=== PATIENT | female | born 1995 | race Caucasian/White ===

== ENCOUNTER 2020-11-05 04:01 | Emergency (ER) | payer OTHER ==
[~2020-11-05] VITALS: Ht 165.1 cm; Wt 142.9 kg
[2020-11-05] MEDS ORDERED: WELLBUTRIN 75 M75 M1 PO (04:18)
[2020-11-05] MEDS ORDERED: SYNTHROID175 MCG PO (04:18)
[2020-11-05 04:35] LABS: URINE BILIRUBIN NEGATIVE (Negative); URINE BLOOD 3+ (Negative); URINE CLARITY CLEAR; URINE COLOR YELLOW; URINE GLUCOSE-RANDOM NEGATIVE (Negative); URINE KETONES 1+ (Negative); URINE LEUKOCYTES-REFLEX NEGATIVE (Negative); URINE NITRITE-REFLEX NEGATIVE (Negative); URINE PROTEIN NEGATIVE (Negative); URINE SPECIFIC GRAVITY 1.025 (1.005-1.030); URINE UROBILINOGEN 0.2 E.U./dl (0.2-1.0)
[2020-11-05 04:59] LABS: ABSOLUTE BASOPHILS 0.1 thou/uL (0.0-0.2); ABSOLUTE EOSINOPHILS 0.1 thou/uL (0.0-0.7); ABSOLUTE LYMPHOCYTES 1.8 thou/uL (0.8-5.3); ABSOLUTE MONOCYTES 0.6 thou/uL (0.0-1.2); ABSOLUTE NEUTROPHILS 5.6 thou/uL (1.6-8.1); BASOPHILS 1.2 %; HEMATOCRIT 39.7 % (37.0-47.0); LYMPHOCYTES 22.7 %; MCHC 32.9 g/dL (28.0-37.0); MCV 88.4 fL (80.0-100.0); MONOCYTES 6.8 %; MPV 7.7 fl. (7.2-11.1); NUCLEATED RBCS 0 /100WBC; PLATELET COUNT* 274 thou/uL (150-400); POLYS 68.3 %; RBC 4.49 mil/uL (4.20-5.00); RDW-CV 13.4 % (10.5-14.5); WBC 8.1 thou/uL (4.0-11.0)
[2020-11-05 05:04] LABS: CREATININE 0.9 mg/dL (0.6-1.3); POTASSIUM 3.7 mmol/L (3.5-5.1)
[2020-11-05 05:13] LABS: CALCIUM 8.9 mg/dL (8.5-10.1)
[2020-11-05 05:36] LABS: CASTS None Seen /LPF (None Seen); CRYSTALS None Seen /LPF (None Seen); MUCUS 0-3 Light strn/LPF (None Seen); SQUAMOUS 4-10 Moderate /LPF (0-3); URINE WBC-REFLEX 0-5 Rare /HPF (0-5)
[2020-11-05] MEDS ORDERED: HYDROCODON-ACE1 EAC8 PO (06:29)
[2020-11-05] MEDS ORDERED: ZOFRAN ODT4 MG PO (06:29)
[2020-11-05 06:42] VITALS: BP 147/83
== END 2020-11-05 06:43 | disposition home or self-care (01) ==
LOC: M.ERS 04:01
PROVIDERS: Emergency Medicine
DX: N13.2 Hydronephrosis with renal and ureteral calculous obstruction (principal); E03.9 Hypothyroidism, unspecified; Z87.442 Personal history of urinary calculi; Z79.899 Other long term (current) drug therapy

== ENCOUNTER 2021-04-01 15:58 | Emergency (ER) | payer OTHER ==
[~2021-04-01] VITALS: Ht 165.1 cm; Wt 147.4 kg
[~2021-04-01 15:58] MED LIST: HYDROCODON-ACE1 EAC8 PO; SYNTHROID175 MCG PO; WELLBUTRIN 75 M75 M1 PO; ZOFRAN ODT4 MG PO
[2021-04-01] MEDS ORDERED: HYDROCODON-ACE1 EAC8 PO (19:20)
[2021-04-01] MEDS ORDERED: NAPROSYN500 MG PO (19:21)
[2021-04-01] MEDS ORDERED: MEDROLDOSEPACK PO (19:21)
[2021-04-01 19:33] VITALS: BP 153/99
== END 2021-04-01 19:33 | disposition home or self-care (01) ==
LOC: M.ERS 15:58
DX: M54.42 Lumbago with sciatica, left side (principal); E03.9 Hypothyroidism, unspecified